=== PATIENT | female | born 1970 | race Caucasian/White ===

== ENCOUNTER 2023-10-24 17:35 | Emergency (ER) | payer MEDICAID, SELFPAY ==
[2023-10-24 17:51] VITALS: BP 115/70; PULSE 91; RESP 18; TEMP 36.6; O2SAT 97; BMI 30.5
--- NOTE | 2023-10-24 18:21 | XRR_ITS ---
PROCEDURE INFORMATION: Exam: XR Lumbosacral Spine Exam date and time: 10/24/2023 6:36 PM Age: 53 years old Clinical indication: Injury or trauma; Fall; Blunt trauma (contusions or hematomas); Prior surgery; Surgery date: 6+ months; Surgery type: Spinal stimulator TECHNIQUE: Imaging protocol: Radiologic exam of the lumbosacral spine. Views: 2 or 3 views. COMPARISON: CR (CHEST, ) 10/24/2023 6:36 PM FINDINGS: Tubes, catheters and devices: There is an epidural neurostimulator in the thoracic spine. One electrode extends up to the T10 level and the other extends up to the T8 level. Bones/joints: Normal. No acute fracture. Normal alignment. Soft tissues: Unremarkable. XR/XR lumbar spine 2-3V* [id number] IMPRESSION: As above
--- NOTE | 2023-10-24 18:21 | XRR_ITS ---
PROCEDURE INFORMATION: Exam: XR Thoracic Spine Exam date and time: 10/24/2023 6:36 PM Age: 53 years old Clinical indication: Injury or trauma; Fall; Blunt trauma (contusions or hematomas); Prior surgery; Surgery date: 6+ months; Surgery type: Spinal stimulator TECHNIQUE: Imaging protocol: Radiologic exam of the thoracic spine. Views: 3 views. COMPARISON: CR (PELVIS, ) 10/24/2023 6:36 PM FINDINGS: Tubes, catheters and devices: There is an epidural neurostimulator in the thoracic spine. 1 electrode lead extends up to the T8 level in the other up to T10. Bones/joints: Normal. No acute fracture. Normal alignment. Soft tissues: Unremarkable. XR/XR thoracic spine 3V* [id number] IMPRESSION: As above
--- NOTE | 2023-10-24 19:53 | W.ED.FALL ---
HPI - Fall General: Chief Complaint: Fall Stated Complaint: fall, back pain Time Seen by Provider: 10/24/23 18:53 Source: patient Mode of arrival: ambulatory Limitations: no limitations History of Present Illness: 53yo female presents with family for low back pain following a trip and fall this afternoon. States she was coming from her room, tripped over her dog, and landed on her back on a step in th RV. Reports a history of spinal stenosis with a stimulator in place. States her previous flares have been treated with steroids and pain medication as they do not occur frequently. She denies hitting her head, loss if consciousness, vomiting, incontinence, groin numbness/tingling, lower extremity weakness. Associated symptoms-after fall: Denies chest pain or headache(s) Review of Systems Const: Denies: fever(s) or chills Card: Denies: chest pain Resp: Denies: dyspnea GI: Denies: vomiting Musc: Reports: back pain (left low back) Neuro: Denies: headache(s) Physical Exam Const: COMMON NORMALS: patient oriented x3 and alert GENERAL APPEARANCE: cooperative ORIENTATION/CONSCIOUSNESS: Yes awake OTHER: Patient initially sleeping upon entrance to exam room, but was easily awakened. Patient reports that she does have significant pain to her left low back. She is able to give history with no difficulty. Family is at bedside HENMT: COMMON NORMALS: normocephalic HEAD & SCALP: normocephalic Neck/C-Spine: COMMON NORMALS: full ROM Chest: CHEST: Yes Symmetrical chest wall rise Resp: COMMON NORMALS: normal respiratory effort Back/Pelvis: THORACIC SPINE/UPPER BACK: No thoracic spinal tenderness LUMBAR SPINE/LOWER BACK: Yes lumbar spinal tenderness Lumbar spinal tenderness location: L4 and L5 PELVIS: Yes buttocks normal OTHER: Increased pain with left leg movement Extremity: COMMON NORMALS: full ROM Neuro: COMMON NORMALS: patient oriented x3 SENSORIUM/ORIENTATION: Yes alert Psych: COMMON NORMALS: cooperative Skin: GENERAL SKIN EXAM: no ecchymo and no erythema Course Reevaluation(s): Reevaluation #1: Reevaluated patient. She reported that she did have some improvement in her pain, but it is still significant. Discussed with patient that with her allergy to codeine and NSAIDs, we are very limited on her medications. Patient reports that she has previously tolerated tramadol and it has worked for her. Discussed with patient multiple side effects and interactions with tramadol, patient states that she had no problems previously and needs something for her pain. Time: 21:00 Vital Signs: Vital signs: Vital Signs Temperature 97.8 F 10/24/23 17:51 Pulse Rate 91 10/24/23 17:51 Respiratory Rate 18 10/24/23 17:51 Blood Pressure 115/70 10/24/23 17:51 Pulse Oximetry 97 10/24/23 17:51 Oxygen Delivery Me thod Room Air 10/24/23 17:51 MDM - Fall Medical Decision Making 53yo female here with family for evaluation of left low back pain following a trip and fall where she landed on her back on a step this afternoon. Patient has a reported history of spinal stenosis and does have a spinal stimulator in place. She denies hitting her head, loss consciousness, neck pain, incontinence, groin numbness/tingling, lower extremity weakness. Patient is nontoxic in appearance. Vital signs are stable. Imaging obtained prior to room placement with no acute concerning abnormalities noted, spinal stimulator noted to be in place. Discussed those findings with patient and family. Patient did report that she does not have back flares very often, but when she does she received steroids and pain medications. Patient did receive orphenadrine and prednisone while in the emergency department. She does have a reported anaphylaxis to NSAIDs and an unknown reaction to codeine. Patient reported mild improvement after administration of orphenadrine and prednisone. She does state that she has tolerated tramadol previously despite her listed allergies. Patient did receive tramadol while in the emergency department. Prescription for tramadol and Medrol Dosepak was sent to patient's pharmacy, sedation precautions provided. Recommend range of motion exercises and continue to monitor her symptoms. Advised to follow-up with primary care, call in a couple of days with an update of symptoms and to discuss a recheck. Recommend return to the emergency department if any rapid worsening symptoms, further injury, incontinence, groin numbness/tingling, lower extremity weakness, and as needed. Patient states understanding has no further questions or concerns at this time. Medical Records I reviewed the patient's medical records. No previous visits noted Lab Data Radiology Impressions Lumbar Spine X-Ray 10/24/23 18:21 IMPRESSION: As above Thoracic Spine X-Ray 10/24/23 18:21 IMPRESSION: As above All radiology interpretation(s) finalized by discharge Discharge Plan Discharge Patient Disposition: Home Clinical Impression: Fall from slip, trip, or stumble Qualifiers: Encounter type: initial encounter Qualified Code(s): W01.0XXA - Fall on same level from slipping, tripping and stumbling without subsequent striking against object, initial encounter Acute left-sided low back pain Qualifiers: Sciatica presence: without sciatica Qualified Code(s): M54.50 - Low back pain, unspecified Condition: Stable Prescriptions: New tramadol 50 mg tablet 50 mg PO Q6H PRN (Reason: pain) Qty: 20 0RF Medrol (Tien) 4 mg tablets,dose pack See Rx Instructions .ROUTE .COMPLEX Qty: 21 0RF Rx Instructions: orally per package directions Discharge Orders: Discharge ED (Routine); Ordered 10/24/23 Ordered By: Rei Smart Discharge Diet: Usual diet Discharge Activity: Increase activity as tolerated Patient Instructions: Tramadol (By mouth), Lower Back Exercises (ED) Activity Restrictions/Additional Instructions: No acute abnormalities were noted on your x-rays today Tramadol and prednisone Dosepak have been sent to your pharmacy to help with your low back pain. Please do not drive or operate heavy machinery while taking tramadol Follow-up with your doctor, call later this week with an update of symptoms and to discuss a recheck Return to the emergency department if any rapid worsening symptoms, further injury, incontinence, groin numbness/tingling, and as needed Coding Level of Care Code ED Credit Manager for Clementina Flores
[2023-10-24] MEDS: orphenadrine 30 mg/mL Inj 2 mL 60 MG IM (20:16)
[2023-10-24] MEDS: predniSONE 20 mg Tablet 40 MG PO (20:16)
[2023-10-24] MEDS: TRAMadol 50 mg Tablet 100 MG PO (21:20)
[2023-10-24 21:35] VITALS: BP 129/87; PULSE 78; O2SAT 97
== END 2023-10-24 21:38 | disposition home or self-care (01) ==
PROVIDERS: Emergency Provider Nurse Practitioner
DX: M54.50 Low back pain, unspecified (principal); W01.0XXA Fall on same level from slipping, tripping and stumbling without subsequent striking against object, initial encounter
CPT/HCPCS: 72072; 72100; 96372; 99284; J2360; J7512